=== PATIENT | male | born 1995 | race Caucasian/White ===

== ENCOUNTER 2021-10-13 09:52 | Emergency (ER) | payer OTHER ==
[~2021-10-13] VITALS: Ht 167.6 cm; Wt 85.0 kg
[2021-10-13] MEDS ORDERED: LIDOCAINE 5% PATCH TOP SCH (12:30)
[2021-10-13] MEDS ORDERED: KETOROLAC 60MG/2ML VIAL IM ONE (12:30)
[2021-10-13] MEDS ORDERED: LIDO700A30 TP (13:45)
[2021-10-13] MEDS ORDERED: NAPR-1176 MT (13:45)
[2021-10-13 14:18] VITALS: BP 108/81
== END 2021-10-13 14:23 | disposition home or self-care (01) ==
LOC: ER 09:52
DX: S39.012A Strain of muscle, fascia and tendon of lower back, initial encounter (principal); S16.1XXA Strain of muscle, fascia and tendon at neck level, initial encounter; M25.561 Pain in right knee; R51.9 Headache, unspecified; V49.49XA Driver injured in collision with other motor vehicles in traffic accident, initial encounter; Y93.89 Activity, other specified; Y92.488 Other paved roadways as the place of occurrence of the external cause
CPT/HCPCS: 73564; 96372; 99283; J1885